=== PATIENT | female | born 1980 ===

== ENCOUNTER 2016-06-05 10:53 | Outpatient (CLI) | payer OTHER ==
[2016-06-05 12:13] LABS: URINE BILIRUBIN NEGATIVE (NEGATIVE); URINE BLOOD NEGATIVE (NEGATIVE); URINE GLUCOSE (UA) NEGATIVE (NEGATIVE); URINE LEUKOCYTE ESTERASE NEGATIVE (NEGATIVE); URINE NITRITE NEGATIVE (NEGATIVE); URINE PROTEIN NEGATIVE (NEGATIVE); URINE UROBILINOGEN NORMAL (0-1 mg/dl)
[2016-06-05 12:14] LABS: URINE APPEARANCE CLEAR; URINE COLOR YELLOW
[2016-06-05 12:18] VITALS: BMI 35.4
[2016-06-05] MEDS ORDERED: BETAMETHASONE ACET 6 MG/ML 5ML VIAL IM ONE (12:58)
[2016-06-05] MEDS ORDERED: PROMETHAZINE HCL 25 MG/ML VIAL IM ONE (13:17)
[2016-06-05] MEDS ORDERED: MORPHINE SULFATE 10 MG/ML SYRINGE IM ONE (13:18)
--- NOTE | 2016-06-05 14:28 | PCMOBT ---
OB Triage - Subjective BHAVYA GRAF is a 35 year old at 34w6d who presents to L & D triage c/o UCs and vag pressure. Had UCs yesterday, but got worse today around 9AM. No VB or ROM. Review of Systems: Ctx (w vag pressure), Other (No GALVAN, change in vision, nausea or vomiting. +FM.) - Physical Exam General: Other (anxious and painful) HEENT: Normocephalic, Atraumatic Neurological: Alert, No Obvious Motor/ Sensory Deficit Abdomen: Gravid Extremeties: No Deformities - Pelvic Exam External Genitalia: Normal Appearance Cervix: Closed and Long (0) Uterus: Gravid - Heart Tones Baseline: 130 (Cat I) Variability: Moderate Accelerations: Present Decelerations: Non-Present - Assessment/ Plan 35 year old -3-1-5 at 34w6d here for UCs and vag pressure 1. PTL. Betamethasone IM MSO4 and phenergan IM Monitor for cervical change, if no change after 4-6 hrs, will DC home w precautions. Keep appt in clinic tomorrow RT [facility] for 2nd betamethasone dose if unable to get in clinic tomorrow. Return precautions given: including that she should return if she has decreased movement, if she has LOF, vaginal bleeding or contractions such that she thinks she's in labor.
== END 2016-06-05 15:00 | disposition home or self-care (01) ==
LOC: FBC 10:53 → FBCOUT 10:53
PROVIDERS: ATTEND Family Medicine
DX: O47.03 False labor before 37 completed weeks of gestation, third trimester (principal); Z3A.34 34 weeks gestation of pregnancy; O09.523 Supervision of elderly multigravida, third trimester
CPT/HCPCS: 96372; 81003; 59025; J0702; J2270; J2550; G0463

== ENCOUNTER 2016-06-06 13:34 | Outpatient (CLI) | payer OTHER ==
[2016-06-06] MEDS ORDERED: BETAMETHASONE ACET 6 MG/ML 5ML VIAL IM ONE (13:38)
== END 2016-06-06 13:59 | disposition home or self-care (01) ==
LOC: FBCOUT 13:34 → FBC 13:35 → FBCOUT 13:59
PROVIDERS: ATTEND Family Medicine
DX: O47.03 False labor before 37 completed weeks of gestation, third trimester (principal); Z3A.34 34 weeks gestation of pregnancy

== ENCOUNTER 2016-06-14 18:03 | Inpatient (IN) | payer OTHER ==
[2016-06-14 19:45] VITALS: BMI 36.8
[2016-06-14] MEDS ORDERED: LACTATED RINGERS 1,000 ML IV PRN (19:53)
[2016-06-14] MEDS ORDERED: OXYTOCIN IN NS 334 ML IV PRN ×2 (19:53→21:44)
[2016-06-14] MEDS ORDERED: OXYTOCIN 10 UNITS/ML VIAL ONE (20:21)
[2016-06-14] MEDS ORDERED: OXYTOCIN IN NS 500 ML IV ONE (20:21)
[2016-06-14] MEDS ORDERED: FENTANYL/ROPIVACAINE EPIDURAL 250 ML EP ONE (20:21)
[2016-06-14] MEDS ORDERED: LIDOCAINE 1% (PRES FREE) 30 ML VIAL ONE (20:21)
[2016-06-14] MEDS ORDERED: LIDOCAINE Viscous 2% 15 ML UDCUP ONE (20:21)
[2016-06-14] MEDS ORDERED: MINERAL OIL 25 ML BOT ONE (20:21)
[2016-06-14] MEDS: LACTATED RINGERS 1,000 ML IV PRN (21:25)
[2016-06-14] MEDS ORDERED: PENICILLIN G POTASSIUM 5 MMU in NS 0.9% (MINI-BAG PLUS) 100 ML IV ONE (21:44)
[2016-06-14] MEDS ORDERED: EPIDURAL PROCEDURE TRAY ONE (21:53)
[2016-06-14 21:58] LABS: HEMATOCRIT 35.9 % (37.0-47.0); HEMOGLOBIN 12.4 gm/l (12.0-16.0); MEAN CELL VOLUME 91.1 fl (81.0-99.0); MEAN CORPUSCULAR HEMOGLOBIN 31.5 pg (27.0-31.0); MEAN CORPUSCULAR HGB CONC 34.5 g/dl (33.0-37.0); RED CELL DISTRIBUTION WIDTH 13.1 % (11.5-14.5)
[2016-06-14] MEDS: LACTATED RINGERS 1,000 ML IV SCH ×2 (22:00→23:13)
[2016-06-14] MEDS: FENTANYL/ROPIVACAINE EPIDURAL 250 ML EP SCH (22:20)
[2016-06-14] MEDS ORDERED: LACTATED RINGERS 500 ML IV PRN (22:52)
[2016-06-14] MEDS ORDERED: NALOXONE HCL 0.4 MG/ML VIAL IV PRN (22:52)
[2016-06-14] MEDS ORDERED: DIPHENHYDRAMINE HCL 50 MG/1 ML VIAL IV PRN (22:52)
[2016-06-14] MEDS ORDERED: METOCLOPRAMIDE HCL 5 MG/ML 2ML VIAL IV PRN (22:52)
[2016-06-14] MEDS ORDERED: SODIUM CHLORIDE 0.9% 500 ML IV PRN (22:52)
[2016-06-14] MEDS ORDERED: EPHEDRINE SULFATE 50 MG/ML 1ML VIAL IV PRN (22:52)
[2016-06-14] MEDS ORDERED: NALBUPHINE HCL 20 MG/ML AMP IV PRN (22:52)
[2016-06-14] MEDS ORDERED: PENICILLIN G POTASSIUM 5 MMU VIAL ONE (22:56)
[2016-06-14] MEDS ORDERED: DINOPROSTONE 10 MG SUP VG ONE (23:17)
--- NOTE | 2016-06-15 00:02 | PCMAN ---
OB Admission Note - History : 7 Term: 5 : 3 Abortions (S&E): 1 Livin Gestational Age (weeks): 36 Days (#/7): 1 Admit Cervical Dilation:: 3-4 cm outer os Admit Cervical Effacement (%):: 80 Admit Station:: -3 Admit Presentaton:: Vertex Membrane Status: Intact Labor Onset (Date): 06/14/16 Labor Onset (Time): 15:00 Contractions: Yes Contraction Frequency:: q 3-7 min Heart Rate:: 145 Status:: reassuring EFW:: 7 Lbs Summary of Course:: 11 wk u/s changed JAYDEN AMA GDM, diet-controlled Depression on Zoloft History of PTD x 3 at 32 wks, Hx of 2 full term deliveries with Progesterone injections, received weekly [place] until 28 wks but then could not tolerate anymore - Labs Blood Type: A (+) positive Rubella Status: Immune GBS Status: Unknown Abnormal Labs: Other (3 hr GTT abnl 2/4) - Review of Systems 12 point ROS was normal except for strong pain with contractions - Physical Exam General: Moderate Distress (with contractions) Lungs: Clear to Auscultation Bilaterally Cardiovascular: Regular Rate and Rhythm Abdomen: Other (gravid, non-tender, Vertex) Extremities: Full ROM - Problems (1) labor Status: Acute Code: O60.00Assessment/Plan: 35 yo @ 36 1/7wks by an 11 wk u/s with history of PTD x 3 at 32 wks, GDM and depression on Zoloft who presents with very painful regular contractions. Per supervisor metal placing, she went from a fingertip cervix to an outer os that opened to 3-4 cm and requested an epidural. FHTs were reassuring. GBS was unknown. -pt was admitted and an epidural was placed -PCN prophylaxis started due to unknown GBS status at <37 wks After placement of the epidural, I had a chance to examine her cervix myself and unfortunately could not appreciate an open outer os. Because of history of a LEEP in 2013, I decided to examine her with a sterile speculum and per visual assessment felt that her cervix was severely stenosed and completely closed. We discussed options in light of her debilitating severe contraction pains not having opened her cervix. I explained that we could try a cervical ripening agent that might help open the cervix enough to then follow this with a shoemaker bulb. I also discussed that if her cervix does not open, she might need a Cesarian Section although we'll have to discuss the timing of this given that she is only 36 1/7 wks today. (2) Cervical stenosis (uterine cervix) Status: Acute Code: N88.2Assessment/Plan: See my discussion under labor re finding of a severely stenosed cervix.
[2016-06-15] MEDS ORDERED: PENICILLIN G 3 MIL UNIT PREMIX 50 ML IV ONE ×5 (02:50→21:27)
[2016-06-15] MEDS ORDERED: EPHEDRINE SULFATE 50 MG/ML 1ML VIAL ONE (03:15)
[2016-06-15] MEDS: PENICILLIN G 3 MIL UNIT PREMIX 3 MMU in Premix (D5W) 50 ml 1 EACH IV SCH ×5 (03:20→21:34)
[2016-06-15] MEDS: LACTATED RINGERS 1,000 ML IV SCH ×7 (03:22→21:40)
[2016-06-15] MEDS ORDERED: ACETAMINOPHEN 500 MG TABLET PO ONE (03:28)
[2016-06-15] MEDS: ONDANSETRON 4 MG/2ML 2 ML VIAL IV PRN ×2 (03:33→09:07)
[2016-06-15] MEDS ORDERED: PANTOPRAZOLE 40 MG TABLET DR PO PRN (08:03)
--- NOTE | 2016-06-15 08:09 | PDOC36 ---
Provider Note Subject: OB consultation note Note: 35yo at 36w+2d by 11w ultrasound; pt of [facility] has h/o PTD x 3 (<32w, 2-3lbs) and fullterm delivery x 2 (with progesterone) pt had a h/o LEEP in 2013. States she was amenorrheic after (but also had contraceptive implant) and required dilation in office x 1 to "drain blood from uterus". pt has been receiving progesterone this for h/o PTD; pt requested stop at 28w as she was not feeling well with the injections. pt has been having contractions this and went to [facility] 2x this month. Pt was discharged on nifedipine. Pt came in last night with strong painful contractions. Initial report was pt was 3cm dilated on external os. Pt subsequently received epidural. Pt was then evaluated by Dr. Calhoun, who did digital and speculum exam. Cervix was noted to be closed and possibly stenotic. Pt was given cervidil x 3 hrs and pulled at 0230 due to hyperstimulation. FHT: 140's, reactive, mod variability [place]: q1-3 min with coupling cervical exam: cervix is closed, 70%, anterior, cephalic a/p) in this period at 36w+2d, would recommend attempting tocolysis - terbutaline there may be cervical stenosis however this cannot be confirmed at this time; however if the patient continues to contract strongly and regularly continue penicillin and observation cont NPO
[2016-06-15] MEDS: ACETAMINOPHEN 500 MG TABLET PO PRN ×2 (08:23→12:46)
[2016-06-15] MEDS: TERBUTALINE SULFATE 1 MG/ML VIAL SUB-Q SCH ×2 (08:25→08:48)
[2016-06-15] MEDS ORDERED: METOCLOPRAMIDE HCL 5 MG/ML 2ML VIAL IV PRN (08:33)
[2016-06-15] MEDS: SERTRALINE HCL 50 MG TABLET PO SCH (09:11)
[2016-06-15] MEDS ORDERED: TERBUTALINE SULFATE 1 MG/ML VIAL SUB-Q ONE (10:09)
--- NOTE | 2016-06-15 10:16 | PDOC36 ---
Provider Note Subject: addendum: Note: d/w Dr. Sarkar. Pt still w UCs q 2min, not painful, but pt w epidural. Will also cont to IV hydrate.
[2016-06-15] MEDS: LACTATED RINGERS 1,000 ML IV PRN (10:45)
[2016-06-15] MEDS: FENTANYL/ROPIVACAINE EPIDURAL 250 ML EP SCH (11:25)
[2016-06-15] MEDS ORDERED: TERBUTALINE SULFATE 1 MG/ML VIAL ONE (13:53)
[2016-06-15] MEDS: D5LR 1,000 ML IV SCH (14:05)
[2016-06-15] MEDS ORDERED: BUTORPHANOL TARTRATE 1 MG/ML VIAL IV ONE (14:21)
--- NOTE | 2016-06-15 14:33 | PDOC36 ---
Provider Note Subject: PN: Note: S: Painful with epidural turned down. Feels some pressure. Wants to have a csxn , if not willing to leave AMA to get it done in another hosp. O: T 99.4 BP 119/67 P 100 Tearful RRR CTA Gravid FHT: 145, accels, no decels [place]: q 2.5-4 A/P: 35 yo at 36w2d here w painful UCs, s/p epidural, received cervidil x 1 (to see if cx could be ripened), then terb x 2 and hydration. UCs have spaced since this AM FHT reassuring Will give 3rd dose of terb Give dose of Stadol as temporizing measure Cont IV hydration, now w D5LR. Will discuss w OB again
[2016-06-15] MEDS ORDERED: FENTANYL 100 MCG/2 ML VIAL ONE (16:18)
[2016-06-15] MEDS ORDERED: ROPIVACAINE 0.5% 30 ML VIAL ONE (16:18)
--- NOTE | 2016-06-15 17:47 | PDOC36 ---
Provider Note Subject: add Note: s: discuss and examined pt w dr. mcconnell. pt painful again. o: avss sve: closed/100/-3, head now engaged cat I a/p: active labor pain control: increase epidural to 100% cont gbs iap gdm: cbg 110, change IVF to LR expt mgmt
[2016-06-16] MEDS ORDERED: PENICILLIN G 3 MIL UNIT PREMIX 50 ML IV ONE ×5 (01:00→18:21)
[2016-06-16] MEDS: PENICILLIN G 3 MIL UNIT PREMIX 3 MMU in Premix (D5W) 50 ml 1 EACH IV SCH ×7 (01:13→22:57)
[2016-06-16] MEDS: LACTATED RINGERS 1,000 ML IV SCH ×8 (01:14→23:19)
[2016-06-16] MEDS: FENTANYL/ROPIVACAINE EPIDURAL 250 ML EP SCH ×3 (01:14→12:20)
[2016-06-16] MEDS: D5LR 1,000 ML IV SCH ×3 (01:21→22:57)
--- NOTE | 2016-06-16 03:46 | PDOC36 ---
Provider Note Subject: add Note: s: pt resting. pain well controlled w epidural. aware of plan that stenosed cx should eventually open on it's own and she should not need csxn. may need provider to manipulate scarred cx to get to start opening. o: bp 115/57 t 36.0 C p 74 nad after probing stenosed cx w my finger, able to tease open os 1.5/100/-3 fht: 135, accels, variables. cat II toco: q 4-5 min a/p: PTL, a1gdm w stenosed cx received betamethasone x 2, 10d ago cont gbs iap epidural for pain mgmt will check bs in am will recheck in 2-3 hrs UCs have spaced compared to earlier today, but reluctant to augment w Pitocin or other agent due to GA
--- NOTE | 2016-06-16 03:56 | PDOC36 ---
Provider Note Subject: add Note: s: comfortable w epidural. resting and trying to sleep. feels a little more pressure in abd, but nothing signif. no urge to push. o: t 36.9C bp 118/74 p 90 nad sve: 3.5/100/-3. vertex toco: q2-5min fht: 140, accels, decels--lates, resolved w position changes. a/p: a1gdm, 36w3d labor w slow progression of cervical change received 2 doses betamethasone 10d ago cont to monitor cx change cont gbs iap epidural for pain mgmt gdm: check cbg in am cont expt mgmt note: ovarian cyst, if pt for some reason gets csxn, should get cystectomy at the same time
[2016-06-16] MEDS: SERTRALINE HCL 50 MG TABLET PO SCH ×2 (07:55→19:41)
[2016-06-16] MEDS: LACTATED RINGERS 1,000 ML IV PRN ×2 (09:14→16:28)
--- NOTE | 2016-06-16 11:11 | PDOC36 ---
Provider Note Subject: MD Interval Note Note: Patient comfortable with epidural. SVE 6/100/-2, lots of bloody show. AROM with clear fluid. Contractions spaced out but are long. FHT: 135, minimal variability, no accels, no decels TOCO: Q3-7 mins A/P: 35 yo at 36 3/7 wks, labor, GBS unknown, on PCN, h/o cervical stenosis - making slow progress - hopefully AROM will help ctx frequency - expectant management
[2016-06-16] MEDS ORDERED: OXYTOCIN IN NS 500 ML IV PRN (14:17)
--- NOTE | 2016-06-16 15:37 | PDOC36 ---
Provider Note Subject: MD Interval Note Note: Patient feeling pressure and nausea. SVE 8/100/-1 per RN, lots of clear fluid. Pit at 1 (started once ctx spaced out more). FHT: 135, moderate variability, no accels, no decels TOCO: Q3-4 mins A/P: 35 y/o at 36 3/7 wks, GBS unknown, cervical stenosis, now in advanced labor - expectant management
[2016-06-16] MEDS ORDERED: ROPIVACAINE 0.5% 30 ML VIAL ONE (16:13)
[2016-06-16] MEDS ORDERED: BENZOCAINE/MENTHOL 60 APPLIC/BOT TP PRN (22:52)
[2016-06-16] MEDS ORDERED: LANOLIN 50 APPLIC/7G TUBE TP PRN (22:52)
[2016-06-16] MEDS ORDERED: MISOPROSTOL 200 MCG TABLET PR ONE (22:55)
--- NOTE | 2016-06-16 23:30 | PCMDEL ---
Delivery Note - Labor 1st stage (hr/min):: 18 hrs 35 mins 2nd stage (hr/min):: 59 min 3rd stage (hr/min):: 4 min Total (hr/min):: 19 hrs 34 mins Pushed (hr/min):: 1 hr - Delivery Delivery (Date): 06/16/16 Delivery (Time): 22:24 Infant Gender: Male Presentation: Cephalic Position: OA Umbilical Cord: 3 Vessel Delayed Cord Clamping:: < 1 min 1 Minute Total: 4 5 Minute Total: 7 Placenta:: 22:29 EBL:: 400 Perineum:: 1st degree perineal lac Suture:: 3-0 Chromic Anesthesia/Meds:: Epidural, PCN for GBS prophylaxis (unknown) Length ROM:: 11 hrs 24 mins Comments:: of NB male, apgars 4/7/8. Baby initially stunned with poor respiratory effort but good tone. placed on mom's abdomen, cord clamped and cut and infant brought to the warmer. Cord blood obtained. Placenta delivered and grossly intact. Patient had mild uterine atony which resolved with fundal massage, IV pitocin, and NC cytotec. 1st degree perineal lac repaired. EBL 400 mL. Infant received PPV at 1 min of life for 3 mins, followed by CPAP x 2 mins. At 4 mins of life, 4mL of bloody amniotic fluid was deleed. By 5 mins, he was breathing on his own and on room air. He was brought to mom for [id number] at 11 mins. Decreased respiratory effort may have been due to maternal zoloft use during for depression. Will continue to monitor closely.
[2016-06-16] MEDS: HYDROCODONE/ACETAMINOPHEN 5/325MG TABLET PO PRN (23:59)
[2016-06-16] MEDS: IBUPROFEN 800 MG TABLET PO PRN (23:59)
[2016-06-17] MEDS: HYDROCODONE/ACETAMINOPHEN 5/325MG TABLET PO PRN ×3 (05:14→22:56)
[2016-06-17] MEDS: FENTANYL/ROPIVACAINE EPIDURAL 250 ML EP SCH (07:03)
[2016-06-17 07:12] LABS: HEMATOCRIT 28.4 % (37.0-47.0); HEMOGLOBIN 9.5 gm/l (12.0-16.0)
[2016-06-17] MEDS: IBUPROFEN 800 MG TABLET PO PRN ×3 (07:52→19:44)
[2016-06-17] MEDS ORDERED: SERTRALINE HCL 50 MG TABLET PO SCH (09:00)
[2016-06-17] MEDS ORDERED: FERROUS SULFATE (65 Fe) 325 MG TABLET PO SCH (10:30)
--- NOTE | 2016-06-17 10:39 | PDOC44 ---
- Subjective Day: 1 tired, mod lochia and moderate cramping. no dizziness. Reports Pain Tolerable, Reports , Reports Lochia Moderate, Reports Tolerating Regular Diet - Objective Temp Pulse Resp BP Pulse Ox 97.8 F 65 18 120/60 06/17/16 08:00 06/17/16 08:00 06/17/16 08:00 06/17/16 08:00 Lab Results 06/17/16 06:20 Hgb 9.5 L Hct 28.4 L Current Medications Generic Name Dose Route Start Last Admin Trade Name Freq PRN Reason Stop Dose Admin Acetaminophen/Hydrocodone Bitart 1 - 2 tab 06/16/16 22:52 06/17/16 05:14 [place] 5/325 PO 2 tab Q4H PRN Administration Pain (Moderate) Benzocaine/Menthol 1 applic 06/16/16 22:52 06/17/16 00:00 Dermoplast TP 1 bot PRN PRN Administration Patient Comfort Emollient Ointment 1 applic 06/16/16 22:52 Osi-W-[id number] TP PRN PRN sore nipples Ferrous Sulfate 325 mg 06/17/16 10:30 Ferrous Sulfate PO DAILY REGINA Ibuprofen 800 mg 06/16/16 22:52 06/17/16 07:52 Motrin PO 800 mg Q6H PRN Administration Pain (Mild) Sertraline HCl 100 mg 06/17/16 09:00 06/17/16 08:18 Zoloft PO 100 mg DAILY REGINA Administration Sodium Chloride 10 ml 06/14/16 21:44 06/17/16 08:20 Normal Saline 10ml Flush IV 10 ml PRN PRN Administration IV Flush Sodium Chloride 10 ml 06/16/16 22:52 Normal Saline 10ml Flush IV PRN PRN IV Flush - Physical Exam General: Afebrile Psych/Mental Status: Mood/Affect Appropriate Neurological: Alert Lungs: Clear to Auscultation Bilaterally Cardiovascular: Regular Rate and Rhythm Breast: Soft Fundus: At Umbilicus Rectal Exam: Deferred Extremities: Other (nt, trace edema) - Problems:Assessment/Plan (1) (normal spontaneous vaginal delivery) Status: AcuteAssessment/Plan: doing well. PPD 1 routine care support (2) Anemia Qualifiers: Anemia type: iron deficiency Iron deficiency anemia type: unspecified iron deficiency Qualifier Code: (D50.9) Iron deficiency anemia, unspecified Status: AcuteAssessment/Plan: start iron and colace, asymptomatic Disposition: Anticipate DC Home Tomorrow
[2016-06-17 13:21] LABS: SPECIFIC GRAVITY 1.005 (1.001-1.030); URINE BILIRUBIN NEGATIVE (NEGATIVE); URINE BLOOD 3+ (NEGATIVE); URINE GLUCOSE (UA) NEGATIVE (NEGATIVE); URINE LEUKOCYTE ESTERASE NEGATIVE (NEGATIVE); URINE NITRITE NEGATIVE (NEGATIVE); URINE PROTEIN NEGATIVE (NEGATIVE); URINE UROBILINOGEN 1 mg/dL (0-1 mg/dl)
[2016-06-17 13:25] LABS: URINE APPEARANCE CLEAR; URINE COLOR YELLOW
[2016-06-17 13:28] LABS: URINE AMORPHOUS SEDIMENT FEW; URINE BACTERIA RARE; URINE EPITHELIAL CELLS 0-2 /hpf; URINE WBC RARE /hpf
[2016-06-17 19:44] VITALS: BP 122/59
== END 2016-06-17 23:59 | disposition still patient (30) | DRG 774 ==
LOC: FBCOUT 18:03 → FBC 18:04 → FBCOUT 20:21 → FBC 20:21
PROVIDERS: ADMIT Family Medicine; ATTEND Family Medicine
PROC: 10907ZC Drainage of Amniotic Fluid, Therapeutic from Products of Conception, Via Natural or Artificial Opening (ICD-10-PCS; 2016-06-15)
PROC: 10E0XZZ Delivery of Products of Conception, External Approach (ICD-10-PCS; principal; 2016-06-16)
PROC: 0HQ9XZZ Repair Perineum Skin, External Approach (ICD-10-PCS; 2016-06-16)
DX: O24.420 Gestational diabetes mellitus in childbirth, diet controlled (principal); O72.1 Other immediate postpartum hemorrhage; O09.523 Supervision of elderly multigravida, third trimester; O99.344 Other mental disorders complicating childbirth; F32.9 Major depressive disorder, single episode, unspecified; O34.43 Maternal care for other abnormalities of cervix, third trimester; N88.2 Stricture and stenosis of cervix uteri; O76 Abnormality in fetal heart rate and rhythm complicating labor and delivery; O70.0 First degree perineal laceration during delivery; O99.02 Anemia complicating childbirth; D50.9 Iron deficiency anemia, unspecified; Z37.0 Single live birth; Z3A.36 36 weeks gestation of pregnancy